=== PATIENT | female | born 1965 | race African-American/Black ===

== ENCOUNTER → 2020-05-20 | Outpatient (CLI) | payer OTHER ==
[2014-02-02 13:30] VITALS: BP 122/64
[~2020-05-20] MED LIST: LORA10TA68 PO; NORE1PAT3 TP
--- NOTE | 2020-05-20 10:03 | RAD ---
PQRS Compliance Statement: One or more of the following individualized dose reduction techniques were utilized for this examinat ion: 1. Automated exposure control 2. Adjustment of the mA and/or kV according to patient size 3. Use of iterative reconstruction technique CT MAXILLOFACIAL WITHOUT CONTRAST 05/20/2020 9:17 AM Indication: Chronic sinus infection COMPARISON: None available. TECHNIQUE: Multiple axial CT images of the maxillofacial structures were obtained without intravenous contrast. Coronal and sagittal reformats are provided. FINDINGS: Ventricles, sulci and basal cisterns are normal. Visualized portions of the brain parenchyma and post erior fossa appear normal. Orbits are normal in appearance. Globes are spherical and contour. No lens dislocation. Extraocular muscles are intact. Optic nerves appear normal. Maxillary sinuses are well aerated. Under cells are well aerated. Frontal sinuses are well aerated. S phenoid sinuses are well aerated. There is nasal septal deviation to the right by 4 mm. Nasal turbina edgardo are intact. Ostiomeatal units are widely patent. No osseous erosion. Mastoid air cells are well a erated. IMPRESSION: Paranasal sinuses are well aerated. Ostiomeatal units are widely patent. Electronically signed by: Siobhan Sandoval MD (05/20/2020 10:01 AM) [facility]
== END ==
LOC: CT 08:58
DX: R09.81 Nasal congestion (principal)
CPT/HCPCS: 70486